=== PATIENT | female | born 1985 | race Two or more races ===

== ENCOUNTER 2021-10-09 23:27 | Emergency (ER) | payer OTHER ==
[~2021-10-09] VITALS: Ht 152.4 cm; Wt 46.7 kg
== END 2022-03-11 15:07 ==
LOC: ER 23:27
DX: B34.9 Viral infection, unspecified (principal); Z20.822 Contact with and (suspected) exposure to COVID-19; R53.81 Other malaise

== ENCOUNTER 2022-02-28 16:18 | Emergency (ER) | payer OTHER ==
[~2022-02-28] VITALS: Ht 154.9 cm; Wt 46.7 kg
== END 2022-02-28 20:36 | disposition home or self-care (01) ==
LOC: ER 16:18
DX: N39.0 Urinary tract infection, site not specified (principal)

== ENCOUNTER 2023-09-14 21:09 | Emergency (ER) | payer OTHER ==
[~2023-09-14] VITALS: Ht 154.9 cm; Wt 58.5 kg
[2023-09-14] MEDS ORDERED: ACETAMINOPHEN 500 MG GEL..CAP PO ONE (23:00)
[2023-09-15 00:03] LABS: PH,URINE 5.5 (5.0-8.0); URINE APPEARANCE Clear; URINE BILIRRUBIN Negative (NEGATIVE); URINE BLOOD Negative; URINE COLOR Yellow; URINE GLUCOSE Negative (NEGATIVE); URINE LEUKOCYTE Negative; URINE NITRATE Negative; URINE PROTEIN Negative (NEGATIVE); URINE UROBILINOGEN 0.2 E.U./dl
[2023-09-15 00:08] LABS: URINE BACTERIA 60.4 uL (0.0-1933); URINE EPITHELIAL CELLS 5.2 uL (0.0-38.8); URINE RBC 7.7 uL (0.0-20.8); URINE WBC 2.4 uL (0.0-23.2)
[2023-09-15 00:09] LABS: HEMATOCRIT 37.4 % (36.0-45.00); HEMOGLOBIN 12.6 g/dL (12.0-15.00); MEAN CELL VOLUME 83.4 fL (80.00-100.00); MEAN CORPUSCULAR HEMOGLOBIN 28.2 pg (27.00-32.0); MEAN CORPUSCULAR HGB CONC 33.8 g/dl (32.0-36.0); PLATELET COUNT 176 K/uL (150-450); RED BLOOD COUNT 4.48 M/uL (4.00-6.00); RED CELL DISTRIBUTION WIDTH 13.6 % (11.5-14.5)
[2023-09-15] MEDS ORDERED: DOLOGESIC-DF 51 EACH PO (02:51)
== END 2023-09-15 03:06 | disposition home or self-care (01) ==
LOC: ER 21:09
PROVIDERS: General Practice
DX: B34.9 Viral infection, unspecified (principal); R53.81 Other malaise; R50.9 Fever, unspecified; Z20.822 Contact with and (suspected) exposure to COVID-19